=== PATIENT | male | born 2000 | race Hispanic/Latino ===

== ENCOUNTER 2019-08-28 02:16 | Observation (INO) | payer OTHER ==
[2019-08-28] MEDS ORDERED: Famotidine/PF 20 mg/2ml Vial ONE (02:32)
[2019-08-28 02:40] LABS: #Basophils 0.1 thou/uL (0.0-0.2); #Lymphocytes 1.7 thou/uL (1.20-3.40); #Monocytes 0.6 thou/uL (0.11-0.59); %Basophils 0.5 % (0.0-1.0); %Eosinophils 0.3 % (0.0-10.0); %Monocytes 5.1 % (0.0-10.0); %Neutrophils 80.2 % (42.0-75.0); Hemoglobin 16.1 g/dL (14.0-18.0); Mean Corpuscular HGB CONC 33.6 g/dL (32.0-36.0); Mean Corpuscular Hemoglobin 30.4 pg (27.0-31.0); Mean Corpuscular Volume 90.3 fL (78.0-98.0); Mean Platelet Volume 8.7 fL (7.4-10.4); Platelet Count 277 thou/uL (130-400); RBC Distribution Width 11.9 % (11.5-14.5); Red Blood Cell (RBC) Count 5.31 mill/uL (4.70-6.10); White Blood Cell (WBC) Count 12.4 thou/uL (4.8-10.8)
[2019-08-28] MEDS ORDERED: Sucralfate 1 GM TAB ONE (02:41)
[2019-08-28 02:47] LABS: Bilirubin Negative (Negative); Blood, Urine Trace (Negative); Clarity Clear (Clear); Glucose, Urine (Dipstick) Negative (Negative); Leukocyte Trace (Negative); Nitrite Negative (Negative); Protein, Urine (Dipstick) Negative (Neg-Trace); Urobilinogen 0.2 mg/dL (Less than 2)
[2019-08-28 02:54] LABS: Bacteria/HPF None Seen HPF (None Seen); RBC/HPF 0-3 HPF (0-3); Squamous Epithelial 0-3 HPF (0-3); WBC/HPF 0-3 HPF (0-3)
[2019-08-28] MEDS ORDERED: Ondansetron PF 4 MG/2 ML Vial ONE (02:54)
[2019-08-28 03:08] LABS: ALT (SGPT) 21 U/L (8-55); AST (SGOT) 28 U/L (5-34); Albumin 4.3 g/dL (3.5-5.0); Alkaline Phosphatase 111 U/L (40-110); Anion Gap 15 mmol/L (10-20); BUN (Urea Nitrogen) 20 mg/dL (8.9-20.6); Bilirubin, Total 0.3 mg/dL (0.2-1.2); Calc. Creatinine Clearance 0 mL/min (70-130); Calcium 9.4 mg/dL (7.8-10.44); Carbon Dioxide 25 mmol/L (22-29); Chloride 107 mmol/L (98-107); Estimated GFR-MDRD Greater than 90; Glucose 148 mg/dL (70-105); Lipase 7 U/L (8-78); Potassium 3.5 mmol/L (3.5-5.1); Protein, Total 7.3 g/dL (6.0-8.3); Sodium 143 mmol/L (136-145)
[2019-08-28 05:30] VITALS: BMI 36.4
[2019-08-28] MEDS ORDERED: Sodium Chloride 0.9% 1,000 ML IV SCH ×2 (05:45→06:03)
[2019-08-28] MEDS ORDERED: Ondansetron ODT 4 MG TAB SL PRN (05:45)
[2019-08-28] MEDS ORDERED: Ondansetron PF 4 MG/2 ML Vial IVP PRN ×2 (05:45→08:00)
[2019-08-28] MEDS ORDERED: Morphine 2 MG/ML SYRINGE SLOW IVP SCH (06:15)
[2019-08-28] MEDS ORDERED: Guaifenesin DM 100-10/5 ML UDCUP PO PRN (08:00)
[2019-08-28] MEDS ORDERED: Zolpidem Tartrate 5 MG TAB PO PRN (08:00)
[2019-08-28] MEDS ORDERED: Acetaminophen 325 MG TAB PO PRN (08:00)
[2019-08-28] MEDS ORDERED: HYDROcodone/Acetaminophen 5/325 mg Tablet PO PRN (08:00)
[2019-08-28] MEDS ORDERED: Senokot S 8.6-50 MG TAB PO PRN (08:00)
[2019-08-28] MEDS ORDERED: Bisacodyl 10 MG SUPP PR PRN (08:00)
[2019-08-28] MEDS ORDERED: Calcium Carbonate 500 MG ChewTAB PO PRN (08:00)
[2019-08-28] MEDS ORDERED: Ondansetron ODT 4 MG TAB PO PRN (08:00)
[2019-08-28] MEDS: Famotidine 20 MG TAB PO SCH ×2 (08:23→20:19)
[2019-08-28] MEDS: Famotidine/PF 20 mg/2ml Vial SLOW IVP SCH ×2 (08:25→20:19)
[2019-08-28] MEDS: Sodium Chloride 0.9% 1,000 ML IV SCH ×2 (08:31→20:19)
[2019-08-28] MEDS ORDERED: Pantoprazole 40 MG VIAL IVP SCH (09:00)
[2019-08-28] MEDS ORDERED: FLU VACC QS2019-20(6MOS UP)/PF 60 MCG/0.5 ML SYRINGE IM ONE (09:00)
--- NOTE | 2019-08-28 09:07 | CT ---
PRELIMINARY REPORT/[facility]/EMERGENCY AFTER HOURS PROCEDURE: PROCEDURE INFORMATION: Exam: CT Abdomen And Pelvis Without Contrast Exam date and time: 08/28/2019 2:45 AM Clinical history: 19 years old, male; Patient HX: Patient presents for evaluation of abdominal pain. Historian history provided by patient, onset anil at 11pm, has had couple of similar episodes, see n at [facility], had negative workup, currently being treated for h. Pylori. Pain is mid abdomina l associated with emesis. PT reports improvement with being upright and walking around, worse if lyin g down. TECHNIQUE: Imaging protocol: Computed tomography of the abdomen and pelvis without contrast. COMPARISON: No relevant prior studies available. FINDINGS: Liver: Normal. Gallbladder and bile ducts: Normal Pancreas: Normal. Spleen: Normal. Adrenals: Normal. Kidneys and ureters: Normal. Stomach and bowel: Normal. Appendix: No evidence of appendicitis. Intraperitoneal space: Unremarkable. No free air. No significant fluid collection. Vasculature: Unremarkable. No abdominal aortic aneurysm. Lymph nodes: Unremarkable. No enlarged lymph nodes. Bladder: Unremarkable as visualized. Reproductive: Unremarkable as visualized. Bones/joints: No acute abnormality. Soft tissues: Normal. IMPRESSION: No acute findings. Thank you for allowing us to participate in the care of your patient. Dictated and Authenticated by: Danilo Clark MD 08/28/2019 3:36 AM Central Time ([place] & [place]) FINAL REPORT EMERGENCY AFTER HOURS CT ABDOMEN AND PELVIS WITHOUT CONTRAST: FINDINGS/IMPRESSION: I agree with the findings and impression given in the preliminary report per [facility] physician. No evide nce of acute intra-abdominal/pelvic abnormality. POS: [facility]
[2019-08-28] MEDS ORDERED: Ondansetron HCl/PF 4 MG/2 ML Vial IVP PRN (17:39)
[2019-08-28] MEDS ORDERED: Promethazine HCl 25 MG/ML VIAL IM PRN (17:39)
[2019-08-28] MEDS ORDERED: Promethazine HCl 25 MG/ML VIAL SLOW IVP PRN (17:39)
--- NOTE | 2019-08-28 23:58 | OP ---
DATE OF PROCEDURE: 08/28/2019 PROCEDURE PERFORMED: Esophagogastroduodenoscopy. PREOPERATIVE DIAGNOSES: A 19-year-old Latin-Spanish male with abdominal pain, and nausea. The symptoms have been persistent over the last 2 months. He has had a course of antibiotics for Helicobacter pylori infection for 2 weeks. The patient had abdominal CAT scan, and abdominal CAT scan negative. He underwent EGD. POSTOPERATIVE DIAGNOSES: 1. Normal esophagus. 2. Normal gastroesophageal junction. 3. Retained food residue over the proximal stomach, gastric fundus and greater curvature, some areas not visualized. The lower part of the gastric body, incisura angularis, gastric antrum, no pathology. The pyloric channel shows ulceration. The duodenal bulb, descending duodenum, no pathology. DESCRIPTION OF PROCEDURE: The patient was placed on his left lateral position and was given sedation by Anesthesia Department. A Pentax video gastroscope under direct vision was passed down the oropharynx, past the GE junction into the stomach. The esophageal mucosa appears normal. No esophagitis seen. The GE junction, no lesion seen. Upon entering the stomach, the patient found to have retained food residue over the proximal esophagus, fundus and greater curvature. The lower part of the gastric body, gastric antrum, no lesion. Careful exam of the pyloric channel made to make sure he has no pyloric channel ulcer. There is no ulceration. The duodenal bulb, descending duodenum, no pathology. The stomach decompressed and the scope removed. OVERALL IMPRESSION: Negative exam. Job ID: [id number]
[2019-08-29] MEDS: Sodium Chloride 0.9% 1,000 ML IV SCH (05:02)
[2019-08-29 07:18] VITALS: BP 102/67; TEMP 98.3
[2019-08-29] MEDS: Famotidine 20 MG TAB PO SCH (08:26)
[2019-08-29] MEDS: Famotidine/PF 20 mg/2ml Vial SLOW IVP SCH (08:27)
--- NOTE | 2019-08-29 09:54 | DIS ---
DATE OF ADMISSION: 08/28/2019 DATE OF DISCHARGE: 08/29/2019 PRIMARY CARE PHYSICIAN: [facility] Call Admission. DISCHARGE DISPOSITION: Home. PRIMARY DISCHARGE DIAGNOSIS: Intractable epigastric abdominal pain, resolved, likely due to gastritis. SECONDARY DISCHARGE DIAGNOSIS: Obesity with BMI 36. PRIMARY PROCEDURE/OPERATION: Upper endoscopy was performed by Dr. Wilcox, which did not show any significant finding other than mild pyloric channel ulceration. RADIOLOGICAL INVESTIGATION: CT abdomen and pelvis negative for any acute process. SIGNIFICANT LABORATORY DATA: WBC 12.4, hemoglobin 16.1, and platelet 277. Sodium 143, potassium 3.5, and creatinine 0.98. LFT normal. Lactic acid 1.4. Urinalysis normal. DISCHARGE MEDICATIONS: The patient will finish his H pylori treatment that was prescribed recently by his primary care physician and that is why I advised him to finish it up for another day or two, which is pending for his H pylori treatment. He is on Flagyl 250 mg q.i.d., tetracycline 500 mg b.i.d., and omeprazole 20 mg daily. The patient is also instructed to take as-needed basis omeprazole [id number] for epigastric abdominal pain. CONTRAINDICATION: None. CODE STATUS: Full code. INPATIENT EQUIPMENT MAINTENANCE SUPERVISOR: Dr. Wilcox, GI. TEST RESULTS PENDING ON DISCHARGE: None. ALLERGIES: NO KNOWN DRUG ALLERGIES. DISCHARGE PLAN: Posthospital, the patient will follow up with primary care physician. HOSPITAL COURSE: A 19-year-old male with above-mentioned medical problem, who was admitted by me. Please see my HPI for further details. The patient was admitted for epigastric abdominal pain. He was treated in the emergency room without any significant improvement and that is why he was observed here in the hospital. His pain was controlled with pain medication. He was hydrated with IV fluid. We consulted Gastroenterology and they did upper endoscopy and found with mild pyloric channel ulceration. We provided patient education to avoid NSAIDs. The patient will continue H pylori treatment, which was prescribed by his primary care physician recently and he is due for another day or two. We also advised him to continue [id number] Prilosec versus Nexium to take as needed basis for epigastric abdominal discomfort. Overall, the patient is medically stable for discharge. The patient is seen and examined at bedside today. Plan of care discussed with parents as well as the patient at bedside. PHYSICAL EXAMINATION: VITAL SIGNS: Currently temperature 98.3, pulse 66, respiratory rate 18, saturation 97%, and blood pressure 102/67. Weight 254 pounds. GENERAL: The patient is alert and oriented x3. HEENT: Head; normocephalic, atraumatic. LUNGS: Clear to auscultation without any rhonchi or rales. CARDIAC: S1 and S2, regular without any murmur. No gallop. No rub. ABDOMEN: Soft and benign without any tenderness. EXTREMITIES: No edema. NEUROLOGIC: Nonfocal examination. Overall, the patient is medically stable for discharge today. Job ID: [id number]
--- NOTE | 2019-08-29 10:48 | HP ---
PRIMARY CARE PHYSICIAN: [facility] Call admission. REASON FOR ADMISSION: Abdominal pain. HISTORY OF PRESENT ILLNESS: A 19-year-old male who was recently diagnosed with H. pylori infection based on serological testing, who came to emergency room with abdominal pain which he describes in epigastric region as well as above umbilicus, sharp, 8 x 10 in intensity when it started. The patient reports that on the day of admission around 6 p.m. he had dinner and subsequently around 11 p.m. he had acute abdominal pain. In the emergency room, he had pain medication which did not improve his complete pain. He was treated with IV fluid, Zofran, morphine. CT abdomen and pelvis did not show any acute process. The patient was admitted to medical floor for observation. Next day, when I saw this patient at that time patient was completely pain free. He has H. pylori infection and he was taking his antibiotic prescribed by his primary care physician and he has almost finished. We consulted box car washer. PAST MEDICAL HISTORY: Obesity with BMI 36. H. pylori seropositivity. PAST SURGICAL HISTORY: Reviewed and negative. PAST PSYCHIATRIC HISTORY: Reviewed and negative. ALLERGIES: NO KNOWN DRUG ALLERGIES. FAMILY HISTORY: No strong family history of coronary artery disease, stroke, or cancer. EMERGENCY ROOM COURSE: The patient is given IV fluid, pain medication with morphine, Zofran. PHYSICAL EXAMINATION: VITAL SIGNS: On arrival, blood pressure 98.7, pulse 84, respiratory rate 18, saturation 97%, blood pressure 103/68, weight 254 pounds. GENERAL: The patient is alert and oriented x3. HEENT: Head; normocephalic, atraumatic. Eyes; pupils round, reactive to light. Extraocular muscle intact. ENT; oropharynx within normal limits. Moist mucous membranes. No oral lesion. No pharyngeal erythema, no exudate. NECK: Supple. No JVD. No thyromegaly. No carotid bruit. No jugular venous distention. LUNGS: Clear to auscultation without any rhonchi or rales. CARDIAC: S1, S2. Regular without any murmur. ABDOMEN: Soft and benign without any tenderness. EXTREMITIES: No edema. NEUROLOGIC: Nonfocal examination. SIGNIFICANT LABORATORY DATA: CBC; WBC 12.4, hemoglobin 16.1, platelet 277. BMP; sodium 141, potassium 3.5, BUN 20, creatinine 0.98, calcium 9.4. LFT normal. Lactic acid 1.4. Urinalysis unremarkable CT abdomen and pelvis unremarkable. ASSESSMENT/PLAN: 1. Epigastric abdominal pain, likely related with gastritis versus food borne related. Gastroenterology has been consulted and plan for EGD. 2. Obesity with BMI 36, dietary education given. Weight loss education given. Healthy lifestyle measure discussed with the patient. 3. DVT prophylaxis not needed because we are expecting discharge in 24 hours. 4. Gastrointestinal prophylaxis, Pepcid 20 mg p.o. or IV b.i.d. CODE STATUS: The patient is full code. DISPOSITION PLAN: Based on clinical course. Job ID: [id number]
--- NOTE | 2019-08-30 13:52 | SS ---
DATE OF ADMISSION: 08/28/2019 DATE OF DISCHARGE: 08/29/2019 PRIMARY CARE PHYSICIAN: [facility] Call admission. ADMIT TIME: 5:25 a.m. DATE OF DISCHARGE: Pending. HISTORY OF PRESENT ILLNESS: A 19-year-old male with no significant past medical history, who came to emergency room with complaint of abdominal pain. The patient reports that abdominal pain started around 11 p.m. last night. The patient had regular dinner around 6 p.m. and subsequently, he was experiencing epigastric and above umbilicus abdominal pain in the center, which was not radiating, about 6/10 in intensity, associated with nausea. He had a couple of episodes of vomiting which was containing food particle. He denies any eating spicy food. He denies taking NSAID. The patient reports that he had 1 episode of similar problem about a week ago. At that time, he went to local care, and he was diagnosed with H. pylori infection and since then, the patient was taking tetracycline, metronidazole, and omeprazole. He is done with that therapy, only 1 day is pending. He denies any diarrhea. He denies any fever or chills. He denies any relation of abdominal pain with food, respiration, or activity. In the emergency room, the patient had CT abdomen and pelvis which was unremarkable. Routine blood test also showed mild leukocytosis, otherwise unremarkable. The patient was given pain medication in the emergency room after that his pain subsided. Subsequently, the patient did not have any further pain. The patient was admitted overnight to medical floor. Gastroenterology has been consulted and recommendation is pending. The patient denies any melena or hematochezia. He denies any weight loss. He denies any chronic dyspepsia symptoms. REVIEW OF SYSTEMS: CONSTITUTIONAL: Negative for weight loss or gain, ability to conduct usual activities. SKIN: Negative for rash, itching. EYES: Negative for double vision, pain. ENT/MOUTH: Negative for nose bleeding, neck stiffness, pain, tenderness. CARDIOVASCULAR: Negative for palpitations, dyspnea on exertion, orthopnea. RESPIRATORY: Negative for shortness of breath, wheezing, cough, hemoptysis, fever or night sweats. GASTROINTESTINAL: Negative for poor appetite, abdominal pain, heartburn, nausea, vomiting, constipation, or diarrhea. GENITOURINARY: Negative for urgency, frequency, dysuria, nocturia. MUSCULOSKELETAL: Negative for pain, swelling. NEUROLOGIC/PSYCHIATRIC: Negative for anxiety, depression. ALLERGY/IMMUNOLOGIC: Negative for skin rash, bleeding tendency. Please see my HPI for pertinent positives and negatives. All other review of systems reviewed and negative except as mentioned in HPI. PAST MEDICAL HISTORY: 1. H. pylori infection, diagnosed based on the serological testing, on H. pylori treatment. 2. Gastroesophageal reflux disease. PAST SURGICAL HISTORY: Reviewed and negative. PAST PSYCHIATRIC HISTORY: Reviewed and negative. SOCIAL HISTORY: The patient is student. The patient denies any tobacco, alcohol, or illicit drug abuse. He drinks wine very occasionally. FAMILY HISTORY: No strong family history of premature coronary artery disease, stroke, or cancer. ALLERGIES: NO KNOWN DRUG ALLERGIES. CURRENT HOME MEDICATIONS: 1. Metronidazole 250 mg q.i.d. 2. Tetracycline 500 mg twice daily. 3. Omeprazole 40 mg daily. EMERGENCY ROOM COURSE: The patient is given morphine 2 mg x3, Pepcid 20 mg, Zofran 4 mg, Carafate 1 g, and IV fluid. PHYSICAL EXAMINATION: VITAL SIGNS: On arrival, blood pressure 137/84, pulse 66, respiratory rate 18, temperature 98.3, saturation 97% on room air, weight 72 kg. GENERAL: The patient is currently alert and oriented x3, in no acute distress. HEAD: Normocephalic and atraumatic. EYES: Pupils round and reactive to light. Extraocular muscles intact. ENT: Oropharynx within normal limits. Moist mucous membranes. No oral lesion. No pharyngeal erythema. No exudate. NECK: Supple. No JVD. No thyromegaly. No carotid bruit. No jugular venous distention. LUNGS: Clear to auscultation without any rhonchi or rales. CARDIAC: S1 and S2 regular without any murmur. No gallop. No rub. ABDOMEN: Soft. Bowel sounds present. Currently nontender. Nondistended. No organomegaly. No mass. No Johnson sign. No Mcburney's point tenderness. No suprapubic tenderness. BACK: Unremarkable. No CVA tenderness. EXTREMITIES: Upper extremities, passive movement of all joints are normal. Lower extremity, no edema. Good distal pulsation. No calf tenderness. NEUROLOGIC: Nonfocal examination. SKIN: No skin rash. SIGNIFICANT LABORATORY DATA: CT abdomen and pelvis done in the emergency room showing no acute abdominal process. CBC: WBC 12.4, hemoglobin 16.1, platelet 227. BMP: Sodium 143, potassium 3.5, chloride 107, carbon dioxide 25, BUN 20, creatinine 0.98, glucose 148, calcium 9.7, lactic acid 1.4. LFT: AST 28, ALT 20, alkaline phosphatase 111, albumin 4.3. Urinalysis unremarkable. ASSESSMENT AND PLAN: 1. Abdominal pain. The patient has predominantly epigastric and above umbilicus pain in the center, started after food. The patient also had previous episode of similar pain and diagnosed serologically H. pylori. I am suspecting that this patient might have gastritis that has improved after emergency room treatment. The patient does not have any red flag symptoms. Another differential is cholecystitis, but the patient does not have any abnormal LFT, does not have any chronic dyspepsia, and does not have any Johnson sign. Another possibility is foodborne related gastroenteritis, though the patient does not have any diarrhea and does not have any frequent vomiting. The patient requires only supportive treatment and currently pain has been improved. At this point, Gastroenterology has been consulted from emergency room waiting for their recommendation. 2. Obesity with BMI of 36. Dietary education given. Weight loss education given. Healthy lifestyle measures discussed with the patient. 3. Leukocytosis secondary to reactive to abdominal pain, does not have any infectious. 4. History of H. pylori infection based on serological testing. The patient is advised to finish complete course of treatment as prescribed. 5. Deep venous thrombosis prophylaxis, SCD boots. 6. GI prophylaxis, Pepcid 20 mg p.o. b.i.d. CODE STATUS: The patient is full code. The patient does not have any surrogate decision maker. DISPOSITION PLAN: Based on clinical course. Plan of care discussed with the patient and family member. Job ID: [id number]
--- NOTE | 2019-08-31 08:15 | CON ---
DATE OF CONSULTATION: 08/28/2019 REASON FOR CONSULTATION: Abdominal pain and nausea. HISTORY OF PRESENT ILLNESS: Mr. Easton Aguirre is a very pleasant 19-year-old Latin-Omani male, he is a student in [employer]. 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 The patient had abdominal pain 2 days after he started school in June of 2019. The pain is sharp and is over the epigastric area. The pain is intermittent. There is no history of fever or chills. There is history of nausea, but no vomiting. The pain occurs on empty stomach and also on full stomach. The pain is worse after drinking fluids and also after eating food. The pain is rated somewhere on a scale of 1-10, at 6. The pain sometimes lasts for several hours. The patient has gone to the ER twice . One time, he went to [facility], where he was given symptomatic treatment. He has been going to [facility]. He was found to have positive Helicobacter and was placed on metronidazole, tetracycline, and omeprazole. He has done with two weeks of therapy. The patient had not seen any improvement in his symptoms. The patient came to the ER because of abdominal pain and nausea. His abdominal CAT scan showed no pathology. Serum lipase is normal. Also the liver function tests are normal. The patient does not smoke or drink alcohol. Denies taking any aspirin or any NSAID medication. The patient admits being on a lot of stress lately since his school started. Sometimes he wonders if it could be from the stress. His bowel movements are fairly regular. At times, he has had some constipation. No hematochezia or melena. No other relevant history. ALLERGIES: NONE. SOCIAL HISTORY: The patient is single. Does not smoke or drink alcohol. No history of drug abuse. MEDICAL ILLNESSES: None. PAST SURGICAL HISTORY: None. MEDICATIONS: List, reviewed. REVIEW OF SYSTEMS: A 10 point system reviewed; CONSTITUTIONAL: No history of any weight loss. No change in exercise tolerance. No fatigue or tiredness. HEENT: No chronic headache. No impaired vision. No diplopia. No hearing loss. No nose bleed. No sore throat. NECK: No stiffness or pain. LUNGS: No chronic coughing, hemoptysis, or dyspnea. CARDIOVASCULAR SYSTEM: No chest pain. No palpitation. No dyspnea, orthopnea, or PND. GI: As in history of present illness. : No dysuria or hematuria. MUSCULOSKELETAL: Not relevant. NEUROENDOCRINE: Not relevant. HEMATOLOGIC: Not relevant. PHYSICAL EXAMINATION: GENERAL: Appears very comfortable, in no acute distress. VITAL SIGNS: He is afebrile. Vital signs are stable. Pulse is 76, blood pressure 109/72. HEENT: Conjunctivae are clear. NECK: Supple. No adenitis or thyromegaly noted. CARDIOVASCULAR SYSTEM: First and second heart sounds are normal. LUNGS: Clear to auscultation. ABDOMEN: Soft. Abdomen is mildly tender over the epigastric area. There is no rebound or guarding. No organomegaly. No masses. Bowel sounds normal. EXTREMITIES: Reveal no edema. LABORATORY DATA: He has normal CBC, hemoglobin 16.1, hematocrit 48, MCV 90.3, platelet count is 277,000, polymorphs 80, lymphocytes 14, WBC 12,400. A.m. Chem-7 is normal. Glucose 148. Bilirubin 0.3, AST 28, ALT 21, alkaline phosphatase 111. Lipase normal at 7. Abdominal CAT scan shows no abnormal finding. CLINICAL IMPRESSION: A 19-year-old Latin-Omani male with abdominal pain over the last 2 months. The pain is persistent, but intermittent. He has no history of any weight loss. He has nausea, but no vomiting. He had 2 weeks of therapy for Helicobacter pylori infection. His lab work is basically negative. He had an abdominal CAT scan and no pathology seen. Clinical impression: Abdominal pain, etiology unclear. Possibilities, peptic ulcer versus IBS. PLAN: EGD later on today and I will make further recommendations. Job ID: [id number]
== END 2019-08-29 12:19 | disposition home or self-care (01) ==
LOC: SCSER 02:16 → T4-A 05:25
PROVIDERS: ADMIT Internal Medicine; ATTEND Internal Medicine
PROC: 0DJ08ZZ Inspection of Upper Intestinal Tract, Via Natural or Artificial Opening Endoscopic (ICD-10-PCS; principal; 2019-08-28)
DX: R10.13 Epigastric pain (principal); B96.81 Helicobacter pylori [H. pylori] as the cause of diseases classified elsewhere; K21.9 Gastro-esophageal reflux disease without esophagitis; D72.829 Elevated white blood cell count, unspecified; E66.9 Obesity, unspecified; Z68.36 Body mass index [BMI] 36.0-36.9, adult; Z79.899 Other long term (current) drug therapy
CPT/HCPCS: 74176; 80053; 81003; 81015; 83605; 83690; 85025; 96361; 96374; 96375; 96376; G0378; J2270; J2405; S0028